=== PATIENT | male | born 1935 | race Caucasian/White ===

== ENCOUNTER 2016-10-21 00:24 | Day surgery (SDC) | payer MEDICARE ==
[2016-10-21] VITALS (15 sets, daily range): BP systolic 117–177; BP diastolic 53–99; PULSE 44–64; RESP 12–20; O2SAT 95–98
[~2016-10-21] VITALS: Ht 168.3 cm; Wt 57.7 kg
[~2016-10-21 00:24] MED LIST: CHOL100045 PO; CYAN500 PO; GABA600T2 PO; LIP40 PO; LISI10TA PO; MULT-1018 PO; OMEP20TA86 PO; OXYC1TAB24 PO; WARF2.5T82 PO; WARF5TAB7 PO; ZLP10T PO
[2016-10-21] MEDS ORDERED: 0.9% Sodium Chloride 1,000 ML ONE (10:03)
[2016-10-21] MEDS ORDERED: CeFAZolin 2 Gm/50 mL D5W Duplex Bag IV ONE (10:04)
[2016-10-21] MEDS ORDERED: CeFAZolin 2 Gm/50 mL D5W IV Premix IV ONE (11:05)
[2016-10-21] MEDS ORDERED: 0.9% Sodium Chloride 1,000 ML IV SCH (11:05)
[2016-10-21 13:09] LABS: BASOPHILS % (AUTO) 0.7 % (0-3); MONOCYTES % (AUTO) 6.8 % (4-12); Mean Corpuscular Hemoglobin 30.6 pg (27.0-35.0); Mean Corpuscular Volume 94.9 fL (81-100); NEUTROPHILS % (AUTO) 73.7 % (40-74); Platelet Count 153 bil/L (150-400)
[2016-10-21 13:25] LABS: INR 2.34 ratio
[2016-10-21] MEDS ORDERED: Heparin 5,000 Units/500 mL NS Premix IV ONE (13:34)
[2016-10-21] MEDS ORDERED: Bupivacaine-MPF 0.5% 30 mL Inj ONE (13:34)
[2016-10-21] MEDS ORDERED: 0.9% Sodium Chloride 250 ML ONE ×2 (13:34→19:57)
--- NOTE | 2016-10-21 13:50 | NUR ---
JAY Patient admitted to [facility] ded 4 at 1230. Grandson at bedside. Patient denies pain at this time. HL X 2 placed and labs obtained. Consent in chart, verified with patient and witnessed. History and medications reviewed. Pre-procedure teaching done and questions answered.
[2016-10-21] MEDS ORDERED: fentaNYL-PF 50 mCg/mL 2 mL Inj ONE (14:15)
[2016-10-21] MEDS: 0.9% Sodium Chloride 1,000 ML IV SCH (15:19)
[2016-10-21] MEDS ORDERED: Ondansetron 2 mg/mL 2 mL Inj IVPUSH PRN (15:20)
[2016-10-21] MEDS ORDERED: HYDROcodone-APAP 5-325 mg Tablet PO PRN (15:20)
[2016-10-21] MEDS ORDERED: CeFAZolin Inj 1 GM in IV Premix 1 EACH IV SCH (16:30)
--- NOTE | 2016-10-21 16:43 | OP ---
[address] [address] OPERATIVE REPORT PATIENT: ALEJO GAMING : 1935 MR#: [id number] ADMIT: 10/21/2016 JOB ID: [id number] DATE OF SURGERY: 10/21/2016 PREOPERATIVE DIAGNOSIS(ES): Sick sinus syndrome. POSTOPERATIVE DIAGNOSIS(ES): Sick sinus syndrome. PROCEDURE PERFORMED: 1. Single-chamber pacemaker implantation. 2. Fluoroscopy. SURGEON: Brody Medellin MD, electrophysiology attending. SPECIAL DELIVERY MAIL CARRIER: Demarcus Chacon PA-C IMPLANTED DEVICES: 1. [employer] pulse generator, model PM 1240, serial #[id number]. 2. RV lead [employer] 2088 TC, 52 cm, serial #[id number]. ANESTHESIA: Bolus dosing of Versed and fentanyl were utilized for an appropriate level of sedation. INDICATION: The patient is a pleasant 80-year-old man with now persistent chronic atrial fibrillation and profound bradycardia with heart rates in the low 30s. After discussion of the risks and benefits of pacemaker implantation, he opted to proceed. PROCEDURAL DESCRIPTION: The patient was taken to the EP laboratory in a fasting nonsedated state where he was prepped and draped in the usual sterile fashion. The left infraclavicular regions was infiltrated with 30-40 cc of a 50/50 mixture of bupivacaine and lidocaine. Once adequate anesthesia had been achieved, a 3 cm transverse incision was made 2 cm below the left clavicle. Dissection was carried to the pectoralis fascia. A pocket was then fashioned using combination of electrocautery and blunt dissection. Once adequate anesthesia had been achieved, access to the left axillary vein was gotten with a micropuncture needle over the first rib to ultimately deploy a 0.03 J guidewire. Over this, a 6-[place] tear-away sheath was advanced. Once the guidewire was removed, an active fixation lead was advanced to the RV outflow tract, ultimately to the RV apex. Extensive mapping was undertaken to find an area of adequate sensing and threshold. Once the position was found, the lead was affixed using its associated fixation screw. It was connected to the external analyzer and demonstrated appropriately sensed R waves, impedance, capture threshold. to 10 V and there was no evidence of diaphragmatic stimulation. Once the position and the redundancy of the lead was confirmed with multiple fluoroscopic views, the lead was anchored to the prepectoral fascia using associated anchoring sleeve and two Ethibond sutures. The pocket was then copiously irrigated with normal saline solution and the lead was then connected to a generator. The generator was placed in the pocket and affixed to the floor of the pocket using 1-0 Ti-Cron suture. The incision was then closed with running layers of absorbable suture. The wound was dressed with skin adhesive and a small dressing. At the end of the procedure, the sponge and needle counts were correct. COMPLICATIONS: None. BLOOD LOSS: Negligible. DEVICE MEASURED DATA: 11 mV, 490 ohms, 0.5 V at 0.4 msec. FINAL PROGRAMMED PARAMETERS: VVI 50 beats per minute. IMPRESSION: Successful single-chamber pacemaker in place. PLAN: 1. Stat portable chest x-ray. 2. PA and lateral chest . 3. IV Ancef through tomorrow. 4. Keflex x7 days. 5. Wound check in one week. ATTENDING STATEMENT: Brody Medellin, electrophysiology attending, was present for and supervised/performed all aspects of this procedure.
--- NOTE | 2016-10-21 16:59 | DRSVH ---
PROCEDURE: X-RAY CHEST ONE VIEW, PORTABLE ([id number]) INDICATIONS: For new leads placed TECHNIQUE: One view of the chest was acquired. COMPARISON: 06/10/2016 FINDINGS: Surgical changes and devices: Single lead permanent pacemaker now present. Lungs and pleura: No pleural effusions or pneumothorax. Lungs are clear. Calcified granuloma right mid lung field unchanged. Mediastinum: Mediastinal contours appear normal. Heart size is normal. Bones and chest wall: No suspicious bony lesions. Thoracic scoliosis. Overlying soft tissues appear unremarkable. IMPRESSION: Postoperative changes, no acute cardiopulmonary abnormality Dictated by: Abilio Samuels M.D. on 10/21/2016 at 16:56 Approved by: Abilio Samuels M.D. on 10/21/2016 at 16:57
--- NOTE | 2016-10-21 18:20 | NUR ---
JAY Patient return from chemical lab technician at 1550 with left chest pacemaker in place. Dressing C/D/I. No bleeding or hematoma. Patient denies pain. Chest X ray and ECG 12 complete. Ice pack to site X 2 hours. Family at bedside. Taking PO. HNV. Transferred by bed to room 3029 at 1815. Report to receiving RN.
--- NOTE | 2016-10-21 18:30 | NUR ---
Transfer Pt transferred from [facility] via bed to [facility] [place] 3029, report received from Beryl BARRETT. Pt alert/oriented x 3, denies CP, SOB and pain. Dressing to left chest is c/d/i, no noted swelling or bruising. Pt resting comfortably in bed with call light within reach, bed low and locked, intentional rounding.
[2016-10-21] MEDS ORDERED: oxyCODONE-Acetamin 5-325 mg Tablet PO PRN (19:25)
[2016-10-21] MEDS: CeFAZolin Inj 1 GM in IV Premix 1 EACH IV SCH ×2 (20:04→22:56)
--- NOTE | 2016-10-21 21:22 | PCM.CONPHA ---
Subjective Date of Service: Oct 21, 2016 Reason for Pharmacy Consult: Anticoagulation Management Objective Vital Signs Date Time Temp Pulse Resp B/P Pulse Ox O2 Delivery O2 Flow Rate FiO2 10/21/16 21:14 36.6 50 16 118/65 96 Room Air 10/21/16 18:37 36.7 52 16 130/70 98 Room Air 10/21/16 18:36 50 10/21/16 17:57 52 12 140/67 96 Room Air 10/21/16 17:56 52 12 140/67 Room Air 10/21/16 17:30 64 20 177/67 Room Air 10/21/16 17:30 64 20 177/67 96 Room Air 10/21/16 17:00 53 16 161/78 96 Room Air 10/21/16 17:00 53 16 161/78 96 Room Air 10/21/16 16:45 57 14 157/70 95 Room Air 10/21/16 16:45 57 14 157/70 95 Room Air 10/21/16 16:30 53 12 175/65 95 Room Air 10/21/16 16:30 53 12 175/65 95 Room Air 10/21/16 16:15 52 14 146/82 98 Room Air 10/21/16 16:15 52 14 146/82 98 Room Air 10/21/16 16:05 56 14 154/74 96 Room Air 10/21/16 16:00 54 16 166/99 96 Room Air 10/21/16 15:55 51 20 167/78 95 Room Air 10/21/16 15:55 51 20 167/78 95 Room Air 10/21/16 13:08 37.1 44 16 117/53 95 Room Air Weight (Kilograms): 57.700 Height (Feet): 5 Height (Inches): 6.25 Test 10/21/16 13:04 White Blood Count 5.8th/mm3 (3.8-10.1) Red Blood Count 3.92mil/mm3 (4.40-5.80) Hemoglobin 12.0g/dL (13.8-17.2) Hematocrit 37.2% (41.0-50.0) Mean Corpuscular Volume 94.9fL (81-100) Mean Corpuscular Hemoglobin 30.6pg (27.0-35.0) Mean Corpuscular Hemoglobin Concent 32.3% (32.0-37.0) Red Cell Distribution Width 12.9% (12.3-15.4) Platelet Count 153bil/L (150-400) Neutrophils (%) (Auto) 73.7% (40-74) Lymphocytes (%) (Auto) 15.6% (14-46) Monocytes (%) (Auto) 6.8% (4-12) Eosinophils (%) (Auto) 3.0% (0-5) Basophils (%) (Auto) 0.7% (0-3) Prothrombin Time 25.5sec (8.1-12.5) Prothromb Time International Ratio 2.34ratio Sodium Level 141mEq/L (134-144) Potassium Level 4.5mEq/L (3.5-5.2) Chloride Level 103mEq/L (97-108) Carbon Dioxide Level 29mmol/L (18-29) Blood Urea Nitrogen 18mg/dL (8-27) Creatinine 0.74mg/dL (0.76-1.27) Estimat Glomerular Filtration Rate 108mL/min (>59) Glucose Level 102mg/dL (60-99) Calcium Level 9.0mg/dL (8.5-10.1) Assessment/Plan Assessment/Plan Warfarin per Rx Indication: A-Fib S/P Pacemaker implantation INR goal 2-3; INR today 2.34 Home dose 5mg Mon, 2.5mg rest of week Continue home dose of 2.5mg today as INR in therapeutic range Daily INR ordered Jacinto Reyna PharmD Oct 21, 2016 21:22
--- NOTE | 2016-10-21 23:16 | NUR ---
PT resting comfortably in bed denies pain. PT educated on the importance of keeping left arm in sling post pacer placement.
[2016-10-22 00:52] VITALS: BP 117/65; PULSE 51; RESP 16; O2SAT 96
[2016-10-22] MEDS: 0.9% Sodium Chloride 1,000 ML IV SCH (00:56)
[2016-10-22 05:31] VITALS: BP 142/70; PULSE 52; RESP 16; O2SAT 97
[2016-10-22 06:27] LABS: INR 2.87 ratio
[2016-10-22] MEDS ORDERED: Pantoprazole 20 mg ER24 Tablet PO SCH (06:30)
--- NOTE | 2016-10-22 09:10 | PCM.DIMED ---
Discharge Instructions Date of Service Oct 22, 2016 Dates of Hospitalization Discharge Diagnosis Discharge Diagnosis Chronic Atrial Fibrillation Bradycardia Hypertension Dyslipidemia Diet Heart Healthy Activity Other (Keep incision dry one day. Do not extend left elbow high above shoulder for one month. Do not lift, push or pull more than 10 lbs with the left arm for one month.) Call your provider Fever or Chills, Bleeding, Excessive diarrhea Patient Instructions Follow-up in: 1 week Mid-level Provider (F9): Demarcus Chacon PA-C Follow-up with Mid-level in: 6 weeks Demarcus Chacon PA-C Oct 22, 2016 09:10
[2016-10-22] MEDS ORDERED: CEPH500C PO (09:23)
[2016-10-22 09:40] VITALS: BP 182/59; PULSE 67; RESP 16; O2SAT 97
--- NOTE | 2016-10-22 09:48 | DRSVH ---
PROCEDURE: X-RAY CHEST, TWO VIEWS ([id number]) INDICATIONS: For new lead placement TECHNIQUE: 2 views of the chest were acquired. COMPARISON: [facility], CR, XR CHEST 1VW (PORTABLE), 10/21/2016, 16:10. FINDINGS: Surgical changes and devices: Stable position of single chamber left cardiac pacer. Lungs and pleura: No pleural effusions or pneumothorax. Lungs are clear. Mediastinum: Mediastinal contours are normal. Heart size is enlarged. Bones and chest wall: No suspicious bony abnormalities. Soft tissues appear unremarkable. IMPRESSION: Stable chest post pacer placement. Dictated by: Ulices HENDRIX Interpreted: Ellen Polanco MD on 10/22/2016 at 9:46 Transcribed by: REYNA on 10/22/2016 at 9:48 Approved by: Ulices HENDRIX Interpreted: Ellen Polanco MD on 10/22/2016 at 9:47
--- NOTE | 2016-10-22 09:49 | DIS ---
[address] [address] DISCHARGE SUMMARY PATIENT: ALEJO GAMING : 1935 MR#: [id number] ADMIT: 10/21/2016 JOB ID: [id number] DIS: CHIEF COMPLAINT: Bradycardia and lightheadedness and unsteadiness. BRIEF HISTORY: The patient is a very pleasant 80-year-old man with chronic atrial fibrillation and bradycardia. He has documented heart rates of around 35 beats per minute and is quite often with rates less than 50 beats per minute. He was admitted for pacemaker implant. COURSE IN HOSPITAL: The patient was admitted through the [facility] and taken to the catheterization laboratory, where he received a single-lead pacemaker without incident. He was taken back to the [facility] for recovery from sedation and then transferred [place] third [place] [facility] [place] telemetry monitoring and observation. He did well overnight and in the morning he was ambulatory without difficulty. The pacemaker site was closed and dry. There was no hematoma. He was not experiencing significant pain and denied dyspnea, chest pain, or lightheadedness. Chest x-ray showed good lead position and no pneumothorax. Device evaluation showed excellent capture and sensing thresholds, and 71% ventricular pacing overnight. He felt well for discharge home. DISPOSITION: The patient was discharged home in good condition with a followup appointment at the [facility] Cardiology office in one week. He was asked to not extend his left elbow above his shoulder for one month, and not to lift, push, or pull more than 10 pounds with the left arm for one month. He may start showering and get the incision area wet beginning tomorrow. He will follow his usual heart healthy diet and take medications as prescribed. DISCHARGE MEDICATIONS: 1. Cephalexin 500 mg b.i.d. 2. Atorvastatin 60 mg daily. 3. Vitamin D3, 1000 units daily. 4. Vitamin B12, 2000 mcg daily. 5. Gabapentin 600 mg t.i.d. 6. Lisinopril 10 mg daily. 7. Multivitamin 1 daily. 8. Omeprazole 20 mg daily. 9. Oxycodone/acetaminophen 5/325 mg 1-2 tablets p.o. q.4 h. p.r.n. pain. 10. Warfarin alternating 2.5 mg with 5 mg as directed by his Anticoagulation Clinic. 11. Ambien 10 mg q.h.s. p.r.n. insomnia. FINAL DIAGNOSES: 1. Chronic atrial fibrillation. 2. Symptomatic bradycardia. 3. Hypertension. 4. Dyslipidemia.
--- NOTE | 2016-10-22 10:50 | NUR ---
Social Work-initial assessment/ discharge: Data:See initial assessment. Pt is on day 1 of hospitalization for bradycardia per H&P. Pt's insurance is [facility] and PCP is Lidya Bhakta MD. EMR reviewed. SW met with pt at bedside to discuss discharge planning, SW role explained. Pt is alert and oriented x3. Pt resides at home with his in [facility] where he remains independent with ADLs. Pt drives and does not use any DME. Pt has no HH or SNF history. Pt has no retirement care or VA benefits. SW discussed DPOA/advanced directive, pt states he has completed this, SW encouraged pt to bring a copy into the hospital. Pt has been up independent in his room. Pt states his grandson and daughter in law are providing transport home today. SW provided phone number and plan on white board in room. No discharge needs identified. All updated and agreeable to plan. Assessment:Pt who is independent at baseline. Plan:Pt to discharge home today via POV. No discharge needs identified. All updated and agreeable to plan. ANGELO Francois Addendum: 10/22/16 at 1054 by CECELIA CHANDLER Amended: Links added.
== END 2016-10-22 10:56 | disposition home or self-care (01) ==
LOC: SPI 00:24 → MPC 18:34 → SPI 10-22 10:56
PROVIDERS: ATTEND Internal Medicine Cardiovascular Disease
DX: I49.5 Sick sinus syndrome (principal); I48.2 Chronic atrial fibrillation; I10 Essential (primary) hypertension; E78.5 Hyperlipidemia, unspecified; H26.9 Unspecified cataract; Z79.01 Long term (current) use of anticoagulants; Z87.891 Personal history of nicotine dependence
CPT/HCPCS: 33207; 36415; 71010; 71020; 80048; 85025; 85610; 93005; 99152; 99153; C1769; C1786; C1892; C1898; J0690; J1644; J2250; J3010; J7030; J7050